=== PATIENT | male | born 1960 | race African-American/Black ===

== ENCOUNTER 2018-06-29 11:30 | Emergency (ER) | payer OTHER, MEDICAID ==
[~2018-06-29] VITALS: Ht 182.9 cm; Wt 78.0 kg
[2018-06-29] MEDS ORDERED: KETOROLAC 60MG/2ML VIAL IM ONE (14:30)
[2018-06-29 14:43] VITALS: BP 114/71
== END 2018-06-29 15:21 | disposition left against medical advice (07) ==
LOC: ER 11:30
DX: M25.562 Pain in left knee (principal); R51 Headache; M54.2 Cervicalgia; M79.645 Pain in left finger(s); V79.9XXA Bus occupant (driver) (passenger) injured in unspecified traffic accident, initial encounter; Y93.I9 Activity, other involving external motion; Y92.89 Other specified places as the place of occurrence of the external cause; Y99.8 Other external cause status
CPT/HCPCS: 96372; 99283; J1885